=== PATIENT | female | born 1950 | race Two or more races ===

== ENCOUNTER 2018-03-17 06:34 | Inpatient (IN) | payer MEDICARE ==
[2018-03-16 09:49] VITALS: BMI 29.2
[2018-03-17] MEDS ORDERED: Bacitracin Ointment 30 GM TUBE ONE (07:23)
[2018-03-17 07:31] LABS: BASO # 0.1 K/uL (0.0-0.2); BASO % 1.5 % (0.0-2.0); EOS # 0.4 K/uL (0.0-0.7); HEMOGLOBIN 11.8 g/dL (12.0-16.0); LYMPH # 2.8 K/uL (1.0-4.3); LYMPH % 36.8 % (20.0-40.0); MEAN CELL VOLUME 87.1 fl (81.0-99.0); MEAN CORPUSCULAR HEMOGLOBIN 28.6 pg (27.0-31.0); MEAN CORPUSCULAR HGB CONC 32.9 g/dL (33.0-37.0); MEAN PLATELET VOLUME 8.3 fl (7.2-11.7); MONO # 0.4 K/uL (0.0-0.8); MONO % 5.6 % (0.0-10.0); NEUT # 3.8 K/uL (1.8-7.0); NEUT % 50.1 % (50.0-75.0); NRBC % 0.1 % (0.0-0.0); RBC 4.12 Mil/uL (3.80-5.20); RED CELL DISTRIBUTION WIDTH 15.1 % (11.5-14.5); WHITE BLOOD COUNT 7.5 K/uL (4.8-10.8)
[2018-03-17 07:36] LABS: SQUAMOUS EPITHIAL 1 /hpf (0-5); URINE BILIRUBIN NEGATIVE (NEGATIVE); URINE BLOOD SMALL (NEGATIVE); URINE CLARITY CLEAR (Clear); URINE COLOR YELLOW (YELLOW); URINE GLUCOSE (UA) NEG (Normal); URINE LEUKOCYTE ESTERASE NEG Leu/uL (Negative); URINE PROTEIN NEGATIVE (NEGATIVE); URINE UROBILINOGEN 0.2-1.0 mg/dL (0.2-1.0)
[2018-03-17 07:41] LABS: PROTHROMBIN TIME 11.9 Seconds (9.8-13.1)
[2018-03-17 07:44] LABS: PARTIAL THROMBOPLASTIN TIME 34.9 Seconds (25.6-37.1)
--- NOTE | 2018-03-17 07:51 | CP.PCM.CON ---
History of Present Illness - History of Present Illness History of Present Illness: Orthopedic consultation Dr. Verduzco 68F complains of left knee pain found to have severe DJD failed conservative mgmt and elected for TKR. Denies right knee pain. Lives with son has one flight of stairs. Uses cane for ambulation. No recent illness. No history of bleeding/clotting disorder. Last aspiring 4 days ago as directed. NO history CAD/CVA/stents/seizure PMH: HTN, anemia PSH: cholecystectomy, BTL seasonal allergies Review of Systems - Review of Systems All systems: reviewed and no additional remarkable complaints except - Musculoskeletal Musculoskeletal: As Per HPI Past Patient History - Past Medical History & Family History Past Medical History?: Yes Past Family History: Reviewed and not pertinent - Past Social History Smoking Status: Never Smoked - CARDIAC Hx Cardiac Disorders: Yes Hx Hypertension: Yes - PULMONARY Hx Respiratory Disorders: Yes Hx Bronchitis: Yes (years ago) - NEUROLOGICAL Hx Neurological Disorder: No - HEENT Hx HEENT Problems: Yes Hx Cataracts: Yes - RENAL Hx Chronic Kidney Disease: No - ENDOCRINE/METABOLIC Hx Endocrine Disorders: No - HEMATOLOGICAL/ONCOLOGICAL Hx Blood Disorders: Yes Hx Anemia: Yes Hx Blood Transfusions: No - INTEGUMENTARY Hx Dermatological Problems: No - MUSCULOSKELETAL/RHEUMATOLOGICAL Hx Musculoskeletal Disorders: Yes Hx Arthritis: Yes (back,knees) - GASTROINTESTINAL Hx Gastrointestinal Disorders: No - GENITOURINARY/GYNECOLOGICAL Hx Genitourinary Disorders: No - PSYCHIATRIC Hx Emotional Abuse: No Hx Physical Abuse: No - SURGICAL HISTORY Hx Surgeries: Yes Hx Cholecystectomy: Yes Hx Tubal Ligation: Yes - ANESTHESIA Hx Anesthesia: Yes Hx Anesthesia Reactions: No Hx Malignant Hyperthermia: No Has any member of the family had a problem w/ anesthesia?: No Meds Allergies/Adverse Reactions: Allergies Allergy/AdvReac Type Severity Reaction Status Date / Time hay fever Allergy CONGESTION Uncoded 03/17/18 06:50 mucous Allergy CONGESTION Uncoded 03/17/18 06:50 Physical Exam - Constitutional Appears: Well, No Acute Distress - Extremities Exam Additional comments: small effusion, no erythema, +DP/PT pulses calves soft NT neg homans - Neurological Exam Neurological exam: Alert, Oriented x3 - Psychiatric Exam Psychiatric exam: Normal Affect, Normal Mood - Skin Skin Exam: Dry, Intact, Normal Color, Warm Results - Vital Signs Recent Vital Signs: Last Vital Signs Temp 98.4 F 03/17/18 07:26 Pulse 58 L 03/17/18 07:32 Resp 18 03/17/18 07:26 BP 171/82 H 03/17/18 07:26 Pulse Ox 96 03/17/18 07:26 - Labs Result Diagrams: 03/17/18 07:15 Labs: Laboratory Results - last 24 hr 03/17/18 03/17/18 03/17/18 07:15 07:15 07:15 PT 11.9 INR 1.0 APTT 34.9 Urine Color Yellow Urine Clarity Clear Urine pH 6.0 Ur Specific [place] 1.018 Urine Protein Negative Urine Glucose (UA) Neg Urine Ketones Negative Urine Blood Small Urine Nitrate Negative Urine Bilirubin Negative Urine Urobilinogen 0.2-1.0 Ur Leukocyte Esterase Neg Urine RBC (Auto) 3 Urine Microscopic WBC 1 Ur Squamous Epith Cells 1 Crossmatch See Detail BBK History Checked No verified bt Assessment & Plan (1) Degenerative joint disease of knee, left Assessment and Plan: NPO T&S for OR risks/vielka/alt of TKR explained by Dr. Verduzco, patient verbalizes understanding and consents to procedure u/a reviewed, normal Status: Acute (2) Hypertension Assessment and Plan: cont home meds Status: Chronic (3) Anemia Assessment and Plan: cont iron, patient says it is better since taking iron Status: Chronic
--- NOTE | 2018-03-17 08:11 | CP.PCM.HP ---
Addendum entered and electronically signed by Bernard Plaza MD 03/17/18 17:23: Patient seen. All clinical data reviewed. Medical clearance in the chart . Discussed with resident . Agree with assessment and plan. Will follow up patient post op. Original Note: History of Present Illness - History of Present Illness History of Present Illness: 68 yo F with history of hypertension, anemia presenting today for elective left total knee replacement by Dr. Verduzco. Pt has degenerative joint disease of L knee, currently walks with a cane; has pain both upon walking a prolonged period of time as well as pain upon first getting up in the morning. She has failed conservative therapy, which included therapeutic injections and NSAIDs. Today, she feels well and has no physical complaints or concerns. She has had no recent illness. She has not taken aspirin in the past 4 days, and her last meal was yesterday at 9 pm. ROS: denies chest pain, shortness of breath, dizziness, abdominal discomfort Pt has been cleared for surgery with moderate risk on 03/09/18 as per cardiology: Dr. Hari Lai PMD: Dr. Becerra in [place]. Past Med Hx: HTN, anemia Past Surg Hx: cholecystectomy 1 yr ago, BTL Family Hx: denies family history of HTN, DM, stroke, [place], other chronic conditio ns Social hx: never smoker, denies alcohol use, denies illicit drug use Medications: telmisartan 80mhg-hctz 12.5 mg, iron, multivitamin Allergies: hay fever, amarol? Present on Admission - Present on Admission Any Indicators Present on Admission: No Review of Systems - Review of Systems All systems: reviewed and no additional remarkable complaints except - Cardiovascular Cardiovascular: absent: Chest Pain, Edema - Respiratory Respiratory: absent: Cough, Dyspnea, Chest Congestion - Gastrointestinal Gastrointestinal: absent: Abdominal Pain - Musculoskeletal Musculoskeletal: Joint Swelling (L knee) Past Patient History - Past Medical History & Family History Past Medical History?: Yes Past Family History: Reviewed and not pertinent - Past Social History Smoking Status: Never Smoked Alcohol: None Drugs: Denies - CARDIAC Hx Cardiac Disorders: Yes Hx Hypertension: Yes - PULMONARY Hx Respiratory Disorders: Yes Hx Bronchitis: Yes (years ago) - NEUROLOGICAL Hx Neurological Disorder: No - HEENT Hx HEENT Problems: Yes Hx Cataracts: Yes - RENAL Hx Chronic Kidney Disease: No - ENDOCRINE/METABOLIC Hx Endocrine Disorders: No - HEMATOLOGICAL/ONCOLOGICAL Hx Blood Disorders: Yes Hx Anemia: Yes Hx Blood Transfusions: No - INTEGUMENTARY Hx Dermatological Problems: No - MUSCULOSKELETAL/RHEUMATOLOGICAL Hx Musculoskeletal Disorders: Yes Hx Arthritis: Yes (back,knees) - GASTROINTESTINAL Hx Gastrointestinal Disorders: No - GENITOURINARY/GYNECOLOGICAL Hx Genitourinary Disorders: No - PSYCHIATRIC Hx Emotional Abuse: No Hx Physical Abuse: No - SURGICAL HISTORY Hx Surgeries: Yes Hx Cholecystectomy: Yes Hx Tubal Ligation: Yes - ANESTHESIA Hx Anesthesia: Yes Hx Anesthesia Reactions: No Hx Malignant Hyperthermia: No Has any member of the family had a problem w/ anesthesia?: No Meds Allergies/Adverse Reactions: Allergies Allergy/AdvReac Type Severity Reaction Status Date / Time hay fever Allergy CONGESTION Uncoded 03/17/18 06:50 mucous Allergy CONGESTION Uncoded 03/17/18 06:50 Physical Exam - Constitutional Appears: Well, No Acute Distress - Head Exam Head Exam: NORMAL INSPECTION, NORMOCEPHALIC - Eye Exam Eye Exam: Normal appearance - Respiratory Exam Respiratory Exam: Clear to Auscultation Bilateral, NORMAL BREATHING PATTERN - Cardiovascular Exam Cardiovascular Exam: REGULAR RHYTHM - GI/Abdominal Exam GI & Abdominal Exam: Normal Bowel Sounds, Soft. absent: Tenderness - Extremities Exam Extremities exam: Positive for: joint swelling (L knee). Negative for: calf tenderness, pedal edema, tenderness - Back Exam Back exam: NORMAL INSPECTION - Neurological Exam Neurological exam: Alert, Oriented x3 - Psychiatric Exam Psychiatric exam: Normal Mood - Skin Skin Exam: Dry, Intact, Warm Results - Vital Signs Recent Vital Signs: Last Vital Signs Temp 98.4 F 03/17/18 07:26 Pulse 58 L 03/17/18 07:32 Resp 18 03/17/18 07:26 BP 171/82 H 03/17/18 07:26 Pulse Ox 96 03/17/18 07:26 - Labs Result Diagrams: 03/17/18 07:15 Labs: Laboratory Results - last 24 hr 03/17/18 03/17/18 03/17/18 07:15 07:15 07:15 WBC 7.5 RBC 4.12 Hgb 11.8 L Hct 35.8 MCV 87.1 MCH 28.6 MCHC 32.9 L RDW 15.1 H Plt Count 363 MPV 8.3 Neut % (Auto) 50.1 Lymph % (Auto) 36.8 [place] % (Auto) 5.6 Eos % (Auto) 6.0 H Baso % (Auto) 1.5 Neut # (Auto) 3.8 Lymph # (Auto) 2.8 [place] # (Auto) 0.4 Eos # (Auto) 0.4 Baso # (Auto) 0.1 PT 11.9 INR 1.0 APTT 34.9 Urine Color Urine Clarity Urine pH Ur Specific [place] Urine Protein Urine Glucose (UA) Urine Ketones Urine Blood Urine Nitrate Urine Bilirubin Urine Urobilinogen Ur Leukocyte Esterase Urine RBC (Auto) Urine Microscopic WBC Ur Squamous Epith Cells Crossmatch See Detail BBK History Checked No verified bt 03/17/18 07:15 WBC RBC Hgb Hct MCV MCH MCHC RDW Plt Count MPV Neut % (Auto) Lymph % (Auto) [place] % (Auto) Eos % (Auto) Baso % (Auto) Neut # (Auto) Lymph # (Auto) [place] # (Auto) Eos # (Auto) Baso # (Auto) PT INR APTT Urine Color Yellow Urine Clarity Clear Urine pH 6.0 Ur Specific [place] 1.018 Urine Protein Negative Urine Glucose (UA) Neg Urine Ketones Negative Urine Blood Small Urine Nitrate Negative Urine Bilirubin Negative Urine Urobilinogen 0.2-1.0 Ur Leukocyte Esterase Neg Urine RBC (Auto) 3 Urine Microscopic WBC 1 Ur Squamous Epith Cells 1 Crossmatch BBK History Checked Assessment & Plan - Assessment and Plan (Free Text) Assessment: 68 yo F with hypertension, hx anemia, and arthritis for left TKR today. Pt medically optimized for surgery. Plan: 1. Left TKR - Admit patient for elective TKR, will follow post-op - Pain management as per ortho team - Incentive spirometry after surgery 2. Hypertension - BP initially elevated on arrival; repeat BP normal at 138/76 mm Hg - Monitor BP after surgery; plan to resume home medications 3. Anemia - History of iron deficient anemia - Resume oral iron post-op 4. DVT prophylaxis - As per ortho team post-op
[2018-03-17] MEDS ORDERED: Bupivacaine 0.5% Inj(30mL) ONE (10:08)
[2018-03-17] MEDS ORDERED: Propofol 10 mg/ml Inj (20 ML) ONE (10:12)
[2018-03-17] MEDS ORDERED: Rocuronium 10 mg/ml (5 ml) ONE ×2 (10:12→12:25)
[2018-03-17] MEDS ORDERED: Succinylcholine 200 mg/10 ml Inj IV ONE (10:12)
[2018-03-17] MEDS ORDERED: EPINEPHrine 1 mg/ml (1:1000) Inj ONE (10:14)
[2018-03-17] MEDS ORDERED: Dexamethasone 4 mg/1 ml ONE (10:14)
[2018-03-17] MEDS ORDERED: Tranexamic Acid 1,000 MG in Sodium Chloride 0.9% 100 ML IVPB ONE (10:30)
[2018-03-17] MEDS ORDERED: Lactated Ringer's 1,000 ML IV ONE ×2 (11:00→16:19)
[2018-03-17] MEDS ORDERED: Midazolam 2 MG/2 ML VIAL ONE (11:14)
[2018-03-17] MEDS ORDERED: Neostigmine 1:1000 (1 mg/ml) Inj ONE (12:56)
--- NOTE | 2018-03-17 14:24 | PCM.SURG1 ---
Surgeon's Initial Post Op Note - Surgeon's Notes Surgeon: Luba [employer] Web Developer: 1st assist Baron Chapin/2nd assist GE Lorenz Type of Anesthesia: General Endo (GE Her/ 2nd assikst) Anesthesia Administered By: DR Gamino Pre-Operative Diagnosis: tricompartmental O/A L knee Operative Findings: tricompartmental O/A L knee. anterior and posterioor synovits. posterior capsular contracture/lateral patella contracture Post-Operative Diagnosis: as above Operation Performed: L TKR. posterior capsular relewase. lateral patella release. anterior and posterior synovecrtomy. computer navigation Specimen/Specimens Removed: cartilage/synvoium/bone Estimated Blood Loss: EBL {In ML}: 30 Blood Products Given: N/A Drains Used: No Drains Post-Op Condition: Fair Date of Surgery/Procedure: 03/17/18 Time of Surgery/Procedure: 12:15 (time in room/anaesthesia indcution time 11:15)
[2018-03-17] MEDS ORDERED: HYDROmorphone 0.5 mg/0.5 ml ISec IVP PRN (14:28)
--- NOTE | 2018-03-17 14:32 | PCM.ANESB3 ---
Femoral Nerve Block - Femoral Nerve Block Date of Procedure: 03/17/18 Anesthesiologist: Pilar Pre-Procedure Diagnosis: Left knee advanced Arthritis Post-Procedure Diagnosis: Same Procedure Performed: Femoral Nerve Block Left - Procedure Femoral Nerve Block: The procedure was explained to the patient that it is for the post-operative pain management. Consent was obtained after a thorough discussion with the patient regarding the benefits and possible complications of local anesthetic block of the femoral nerve at the inguinal crease area. The patient was brought to the operating room and standard monitors were applied. Time-out was held with the circulating nurse to confirm the correct surgery and the appropriate block. Under general anesthesia, patient was placed in supine position with fully extended lower extremities and the ____left____ groin exposed. The femoral artery was then carefully palpated. The ultrasound transducer was then applied to this area in the transverse plane and the femoral nerve was visualized lateral to the femoral artery and underneath the fascia iliaca. After thorough identification, the inguinal crease area was prepped with Chloraprep solution. At this point, a #22 gauge Stimuplex 2-inch needle was inserted immediately lateral to the femoral artery pulse at the inguinal crease and advanced perpendicularly. The needle was inserted to the ultrasound transducer in-plane towards the femoral nerve in a [id number] direction. Needle advancement was performed carefully under direct ultrasound visualization. Nerve stimulator was used and twitch of the quadriceps muscle was obtained at current of __0.4___MA. After negative aspiration, __2___cc of __0.5___% __bupivacaine with 1:200:000 epinephrine was injected and this was followed with ___18__ cc of _0.5 % __bupivacaine with 1:200:000 epinephrine . Under ultrasound guidance the local anesthetics were observed spreading below fascia iliaca and around the femoral nerve. The needle was removed intact. The patient tolerated the femoral nerve block well with stable vital signs and was prepared for subsequent surgery.
--- NOTE | 2018-03-17 14:34 | PCM.ANESB2 ---
Popliteal Nerve Block - Popliteal Nerve Block Date of Procedure: 03/17/18 Anesthesiologist: Pilar Pre-Procedure Diagnosis: Left knee advanced arthritis Post-Procedure Diagnosis: Same Procedure Performed: Popliteal Nerve Block Left - Procedure Popliteal Nerve Block: This procedure was explained to the patient that it is for post-operative pain management. Consent was obtained after a thorough discussion with the patient regarding the benefits and possible complications of local anesthetic block of the sciatic nerve at the popliteal level. The patient was brought to the o perating room and standard monitors are applied. Time-out was held with the circulating nurse to confirm the correct surgery and the appropriate block. Under general anesthesia, patient's operative leg was gently raised and supported and the groove in between the biceps femoris and vastus lateralis muscles was carefully palpated. The skin approximately 8cm above the popliteal crease was then marked. The ultrasound transducer was then applied to the posterior thigh approximately 8cm above the popliteal crease in the transverse plane and the sciatic nerve before its division was visualized lateral to the popliteal artery and in between the bicep femoris and semimembranosus/semitendinosus muscles. After identification, the lateral portion of the thigh was prepped with Chloraprep. At this point, a # 21 gauge Stimuplex insulated 4 inch needle was inserted into pre-marked area and advanced in a perpendicular direction. The needle was inserted above the ultrasound transducer in-plane towards the sciatic nerve in a [id number]-jl-werorz direction. Needle advancement was performed carefully under direct ultrasound visualization. Nerve stimulator was used and dorsiflexion of the _left____ foot was elicited at a current of __0.4___ MA. After repeated negative aspiration, __2___cc of __0.375___ % ___bupivacaine with 1:200:000 epinephrine was injected and this was flowed with __18____ cc of __0.375____% __bupivacaine with 1:200:000 epinephrine . Under ultrasound guidance the local anesthetics were observed surrounding sciatic nerve . The needle was removed intact. The patient tolerated the popliteal nerve block well with stable vital signs and was subsequently prepared for the surgery.
--- NOTE | 2018-03-17 15:18 | RAD ---
Date of service: 03/17/2018 PROCEDURE: Left Knee Radiographs. HISTORY: Pain. COMPARISON: None. FINDINGS: BONES: Bone alignment is normal. There is diffuse bone demineralization. There is no acute fracture or bone destruction. JOINTS: Status post total cemented knee arthroplasty. JOINT EFFUSION: None. OTHER FINDINGS: There are expected postoperative changes in the periarticular soft tissues. There are anterior skin billie. IMPRESSION: Status post total cemented knee arthroplasty, expected postoperative changes. No acute complications.
[2018-03-17] MEDS: Lactated Ringer's 1,000 ML IV SCH (17:43)
--- NOTE | 2018-03-17 18:18 | CP.PCM.PCO ---
Assessment/Plan - Assessment and Plan (Free Text) Assessment: S: Patient seen and examined at bedside 60mins after her surgery. NAD, AAOx3, POD0, S/p LTKR, denies any pain. Patient voided already, No PO intake yet, denies any n/v, chest pain, SOB or dizziness. Patient was c/o Right eye irritation and burning, no vision changes. O: VS reviewed, Afebrile PE: Both eye: no erythema, swelling, discharge, PERRL, intact vision A/P: 68 y/o F, POD#0, S/p LTKR - C/w pain management - Encourage PO intake - monitor VS, AM labs - PT - Incentive Spirometer - Eye Burning: Artificial/tear drops - continue Management as per Ortho --- Aixa Hinkle, PGY-II
[2018-03-17] MEDS: ceFAZolin 2 GM in Sodium Chloride 0.9% 100 ML IVPB SCH (21:00)
[2018-03-17] MEDS: Artificial Tears Opht Soln OU PRN (21:04)
[2018-03-17] MEDS: Sodium Chloride 0.9% 1,000 ML IV SCH (21:10)
--- NOTE | 2018-03-18 02:32 | OP ---
PROCEDURE DATE: 03/17/2018 PREOPERATIVE DIAGNOSES: 1. Tricompartmental osteoarthritis of the left knee. 2. Anterior and posterior synovitis. 3. Posterior capsular contracture. 4. Lateral patellar retinacular contracture. POSTOPERATIVE DIAGNOSES: 1. Tricompartmental osteoarthritis of the left knee. 2. Anterior and posterior synovitis. 3. Posterior capsular contracture. 4. Lateral patellar retinacular contracture. OPERATION PERFORMED: 1. Left total knee replacement arthroplasty. 2. Posterior capsular release. 3. Lateral patellar retinacular release. 4. Anterior and posterior synovectomy. 5. Computer navigation. SURGEON: Pb Verduzco MD HVAC REFRIGERATION TECHNICIAN: Baron Chapin PA-C [employer] COACH: Greer Her, certified registered nursing surgical first assistant. ANESTHESIA: General endotracheal anesthesia and regional anesthesia by Dr. Quezada. SPECIMENS REMOVED: Cartilage, synovium and bone. BLOOD LOSS: 30 mL. BLOOD PRODUCTS GIVEN: None. DRAINS: No drains. POSTOPERATIVE CONDITION: Stable. TIME OF SURGERY: 12:15, incision, time in the room 11:15. OPERATIVE INDICATION: Nita Everett is a 68-year-old woman, well known to my practice, who presented with severe pain and restricted range of motion of the left knee. The patient can no longer stand the discomfort, has been treated conservatively with intraarticular injection, activity modification and therapy. Pros, cons, risks and benefits of surgical approach were discussed at length with the patient. The possibility of mechanical failure, infection, thromboembolic disease, nerve injury, secondary or tertiary surgery was discussed. The patient can no longer stand the discomfort and wishes the knee replacement arthroplasty accomplished. Alternative procedures have been discussed. OPERATIVE PROCEDURE: After having obtained the informed consent in the above fashion, after having identified the side, site and procedure and critical pause/time-out, after the satisfactory induction of the anesthetic, the patient was identified as Nita Everett in the supine position with all bony prominences well padded. The left lower extremity was prepped and free draped in the usual fashion for lower extremity surgery. The tourniquet had been applied but was not yet inflated. After exsanguinating the limb using a 6-inch Esmarch bandage, the tourniquet, which had been applied, was inflated to 350 mmHg. A 6-inch straight midline approach was made to the knee. The skin incision was carried down through the skin and subcutaneous tissue. A medial arthrotomy was accomplished. The patella was everted. The knee was flexed. Dissection was carried around posteromedially to the direct head of the semimembranosus tendon. Anterior and posterior cruciate ligaments were excised. Medial and lateral meniscectomies were accomplished. This having been accomplished, the tibia was dislocated anteriorly and the initial osteotomy of the arthroplasty was accomplished on the tibial side. Computer navigation commenced. The anterior tibial strut was affixed anteriorly, superiorly and medially, and it was held with pins and the belt. The accelerometer was placed as was the sensor and the position was noted. At this point in time, computer navigation commenced. The offset, the distance between the posterior insertion of the anterior cruciate ligament and was identified and marked. At this point in time, the medial malleolus was registered, the lateral malleolus was registered. The tibial cut was set to 0 degrees varus-valgus and 3 degrees posterior slope. This having been accomplished, the tibial osteotomy was accomplished 10 mm below the more prominent side. Tibial osteotomy was accomplished. The proximal tibia was prepared with guidance to rotation of the lateral aspect of the tibial condyle, mid malleolar axis, medial third of the tibial tuberosity. This having been accomplished, the wound was thoroughly irrigated. Attention was turned to the femur. Notch osteophytes and border osteophytes were debrided, and pin was placed in the superior aspect of the intercondylar notch. The distal cutting guide was affixed and the sensor and computer navigation accomplished. The sensor was applied as was the accelerometer. The metric above the anterior and posterior sizing was accomplished and registered. Computer navigation commenced. The hip center was found and the distal cut was set to 0 degrees varus-valgus and actually 0.5 degrees of flexion of the femoral component. This having been accomplished, the distal cut was set at 10 mm. The distal cut was accomplished, sizing this for a 3 mm femoral component. The distal femoral cutting block was placed across the epicondylar axis. Anterior and posterior femoral osteotomies were accomplished as well as chamfer cuts. There was found to be evidence of posterior capsular contracture. The posterior capsule was carefully released. The lateral patellar retinaculum was released. The femoral component was fixed and the tibial component was fixed and the 16 mm tibial poly was employed. Flexion/extension balance was found to be excellent. Attention was turned to the patella. Freehand osteotomy was accomplished. The patella was sized and reamed for a 34 mm patella. Flexion/extension balance, patella balance were excellent. The femur, tibia and patella were prepared. The #3 cemented femoral component was applied, the #3 cemented tibial tray, 16 mm polyethylene and the 34 mm patella was cemented as well. Again, flexion/extension balance was excellent, patella balance was excellent. Tourniquet was deflated. Hemostasis was controlled. The medial arthrotomy was closed with #2 FiberWire, followed by #1 Vicryl reinforcing the medial arthrotomy, followed by 0 Vicryl, 2-0 Vicryl and billie for the skin. The tourniquet had been deflated . Hemostasis was controlled. Blood loss was approximately 30 mL. Postoperative x-rays revealed acceptable position of the construct. Pb Verduzco MD
[2018-03-18] MEDS: Lactated Ringer's 1,000 ML IV SCH ×2 (03:05→16:00)
[2018-03-18] MEDS: Sodium Chloride 0.9% 1,000 ML IV SCH (03:13)
[2018-03-18] MEDS: ceFAZolin 2 GM in Sodium Chloride 0.9% 100 ML IVPB SCH (04:00)
[2018-03-18 06:34] LABS: HEMOGLOBIN 9.7 g/dL (12.0-16.0); MEAN CELL VOLUME 87.2 fl (81.0-99.0); MEAN CORPUSCULAR HGB CONC 33.3 g/dL (33.0-37.0); RBC 3.34 Mil/uL (3.80-5.20); WHITE BLOOD COUNT 9.5 K/uL (4.8-10.8)
[2018-03-18 06:48] LABS: BLOOD UREA NITROGEN 15 mg/dl (7-17); CALCIUM 8.6 mg/dL (8.4-10.2); GFR NON-AFRICAN AMERICAN > 60
[2018-03-18] MEDS: Artificial Tears Opht Soln OU PRN ×2 (08:25→16:02)
[2018-03-18 08:26] VITALS: BP 128/78; RESP 20
[2018-03-18] MEDS ORDERED: Multivitamin With Minerals Tab PO SCH (09:00)
[2018-03-18] MEDS ORDERED: [UNRECOGNIZED DRUG - OTHER] PO SCH (09:00)
--- NOTE | 2018-03-18 10:07 | CP.PCM.PN ---
<Susan Mireles - Last Filed: 03/18/18 12:48> Subjective - Date & Time of Evaluation Date of Evaluation: 03/18/18 Time of Evaluation: 09:50 - Subjective Subjective: Pt seen and evaluated this morning at bedside; POD 1 after left total knee replacement. Reports feeling good, worked with PT this am. Denies swelling, tingling, numbness. Objective - Vital Signs/Intake and Output Vital Signs (last 24 hours): Temp Pulse Resp BP Pulse Ox 98.2 F 76 20 128/78 98 03/18/18 08:25 03/18/18 09:33 03/18/18 08:25 03/18/18 08:27 03/18/18 09:33 - Medications Medications: Current Medications Acetaminophen (Tylenol 325mg Tab) 650 mg PO Q6 [facility] Last Admin: 03/18/18 09:44 Dose: 650 mg Artificial Tears (Artificial Tears) 2 drop OU Q4 PRN PRN Reason: Dry eyes Last Admin: 03/18/18 08:25 Dose: 2 drop Aspirin (Ecotrin) 81 mg PO BID [facility] Last Admin: 03/18/18 08:26 Dose: 81 mg Docusate Sodium (Colace) 100 mg PO BID [facility] Last Admin: 03/18/18 08:28 Dose: 100 mg Ferrous Sulfate (Feosol) 325 mg PO DAILY [facility] Last Admin: 03/18/18 08:25 Dose: 325 mg Hydrochlorothiazide (Microzide) 12.5 mg PO DAILY [facility] Last Admin: 03/18/18 08:28 Dose: 12.5 mg Hydromorphone HCl (Dilaudid) 0.5 mg IVP Q4 PRN PRN Reason: Pain, severe (8-10) Last Admin: 03/18/18 03:08 Dose: 0.5 mg Lactated Ringer's (Lactated Ringer's) 1,000 mls @ 100 mls/hr IV .Q10H [facility] Last Admin: 03/18/18 03:05 Dose: Not Given Sodium Chloride (Sodium Chloride 0.9%) 1,000 mls @ 80 mls/hr IV .[id number] [facility] Stop: 03/18/18 15:44 Last Admin: 03/18/18 03:13 Dose: Not Given Losartan Potassium (Cozaar) 100 mg PO DAILY [facility] Last Admin: 03/18/18 08:27 Dose: 100 mg Multivitamins/Minerals (Therapeutic-M Tab) 1 tab PO DAILY [facility] Last Admin: 03/18/18 08:25 Dose: 1 tab Ondansetron HCl (Zofran Inj) 4 mg IVP Q6 PRN PRN Reason: Nausea/Vomiting - Labs Labs: 03/18/18 05:25 03/18/18 05:25 PT 11.9 Seconds (9.8-13.1) 03/17/18 07:15 INR 1.0 03/17/18 07:15 APTT 34.9 Seconds (25.6-37.1) 03/17/18 07:15 - Constitutional Appears: No Acute Distress - Eye Exam Eye Exam: Normal appearance - Respiratory Exam Respiratory Exam: Clear to Ausculation Bilateral, NORMAL BREATHING PATTERN - Cardiovascular Exam Cardiovascular Exam: REGULAR RHYTHM, +S1, +S2 - GI/Abdominal Exam GI & Abdominal Exam: Soft, Normal Bowel Sounds - Extremities Exam Extremities Exam: absent: Calf Tenderness Additional comments: Left lower ext in dressing/brace; able to move toes, sensation intact. RLE no swelling, able to move freely - Neurological Exam Neurological Exam: Alert, Oriented x3 - Psychiatric Exam Psychiatric exam: Normal Affect - Skin Skin Exam: Dry, Intact, Normal Color Assessment and Plan - Assessment and Plan (Free Text) Assessment: 68 yo F with hypertension, hx anemia, and arthritis; POD 1 after left total knee replacement. Using incentive spirometer, doing well. Plan: 1. S/p Left TKR - POD 1 after elective TKR - Pain management as per ortho team; pain well controlled - Encourage incentive spirometry - Physical therapy/ Occupational Therapy 2. Hypertension - Well controlled - Hold diuretic; continue ARB 3. Anemia - History of iron deficient anemia - Resume oral iron post-op - Hgb 9.7; diuretic held to avoid volume depletion 4. Diet - Heart Healthy diet 5. DVT prophylaxis - As per ortho team post-op <Tamie Butts - Last Filed: 03/18/18 15:54> Objective - Vital Signs/Intake and Output Vital Signs (last 24 hours): Temp Pulse Resp BP Pulse Ox 98.2 F 76 20 128/78 98 03/18/18 08:25 03/18/18 09:33 03/18/18 08:25 03/18/18 08:27 03/18/18 09:33 - Medications Medications: Current Medications Acetaminophen (Tylenol 325mg Tab) 650 mg PO Q6 [facility] Last Admin: 03/18/18 14:58 Dose: 650 mg Artificial Tears (Artificial Tears) 2 drop OU Q4 PRN PRN Reason: Dry eyes Last Admin: 03/18/18 08:25 Dose: 2 drop Aspirin (Ecotrin) 81 mg PO BID [facility] Last Admin: 03/18/18 08:26 Dose: 81 mg Docusate Sodium (Colace) 100 mg PO BID [facility] Last Admin: 03/18/18 08:28 Dose: 100 mg Ferrous Sulfate (Feosol) 325 mg PO DAILY [facility] Last Admin: 03/18/18 08:25 Dose: 325 mg Hydrochlorothiazide (Microzide) 12.5 mg PO DAILY [facility] Last Admin: 03/18/18 08:28 Dose: 12.5 mg Hydromorphone HCl (Dilaudid) 0.5 mg IVP Q4 PRN PRN Reason: Pain, severe (8-10) Last Admin: 03/18/18 03:08 Dose: 0.5 mg Lactated Ringer's (Lactated Ringer's) 1,000 mls @ 100 mls/hr IV .Q10H [facility] Last Admin: 03/18/18 03:05 Dose: Not Given Losartan Potassium (Cozaar) 100 mg PO DAILY [facility] Last Admin: 03/18/18 08:27 Dose: 100 mg Multivitamins/Minerals (Therapeutic-M Tab) 1 tab PO DAILY [facility] Last Admin: 03/18/18 08:25 Dose: 1 tab Ondansetron HCl (Zofran Inj) 4 mg IVP Q6 PRN PRN Reason: Nausea/Vomiting - Labs Labs: 03/18/18 05:25 03/18/18 05:25 PT 11.9 Seconds (9.8-13.1) 03/17/18 07:15 INR 1.0 03/17/18 07:15 APTT 34.9 Seconds (25.6-37.1) 03/17/18 07:15 Attending/Attestation - Attestation I have personally seen and examined this patient.: Yes I have fully participated in the care of the patient.: Yes I have reviewed all pertinent clinical information, including history, physical exam and plan: Yes
--- NOTE | 2018-03-18 11:48 | CP.PCM.PN ---
Subjective - Date & Time of Evaluation Date of Evaluation: 03/18/18 Time of Evaluation: 11:45 - Subjective Subjective: Patient states pain is well controlled. Denies CP/SOB/dizziness/numbess/tingling. Objective - Vital Signs/Intake and Output Vital Signs (last 24 hours): Temp Pulse Resp BP Pulse Ox 98.2 F 76 20 128/78 98 03/18/18 08:25 03/18/18 09:33 03/18/18 08:25 03/18/18 08:27 03/18/18 09:33 - Medications Medications: Current Medications Acetaminophen (Tylenol 325mg Tab) 650 mg PO Q6 [facility] Last Admin: 03/18/18 09:44 Dose: 650 mg Artificial Tears (Artificial Tears) 2 drop OU Q4 PRN PRN Reason: Dry eyes Last Admin: 03/18/18 08:25 Dose: 2 drop Aspirin (Ecotrin) 81 mg PO BID [facility] Last Admin: 03/18/18 08:26 Dose: 81 mg Docusate Sodium (Colace) 100 mg PO BID [facility] Last Admin: 03/18/18 08:28 Dose: 100 mg Ferrous Sulfate (Feosol) 325 mg PO DAILY [facility] Last Admin: 03/18/18 08:25 Dose: 325 mg Hydrochlorothiazide (Microzide) 12.5 mg PO DAILY [facility] Last Admin: 03/18/18 08:28 Dose: 12.5 mg Hydromorphone HCl (Dilaudid) 0.5 mg IVP Q4 PRN PRN Reason: Pain, severe (8-10) Last Admin: 03/18/18 03:08 Dose: 0.5 mg Lactated Ringer's (Lactated Ringer's) 1,000 mls @ 100 mls/hr IV .Q10H [facility] Last Admin: 03/18/18 03:05 Dose: Not Given Sodium Chloride (Sodium Chloride 0.9%) 1,000 mls @ 80 mls/hr IV .[id number] [facility] Stop: 03/18/18 15:44 Last Admin: 03/18/18 03:13 Dose: Not Given Losartan Potassium (Cozaar) 100 mg PO DAILY [facility] Last Admin: 03/18/18 08:27 Dose: 100 mg Multivitamins/Minerals (Therapeutic-M Tab) 1 tab PO DAILY [facility] Last Admin: 03/18/18 08:25 Dose: 1 tab Ondansetron HCl (Zofran Inj) 4 mg IVP Q6 PRN PRN Reason: Nausea/Vomiting - Labs Labs: 03/18/18 05:25 03/18/18 05:25 PT 11.9 Seconds (9.8-13.1) 03/17/18 07:15 INR 1.0 03/17/18 07:15 APTT 34.9 Seconds (25.6-37.1) 03/17/18 07:15 - Extremities Exam Additional comments: +ROM ankle/toes, sensation intact +DP/PT pulses calves soft NT neg homans dressi ng intact, knee immob intact Assessment and Plan (1) Degenerative joint disease of knee, left Assessment & Plan: POD#1 s/p left TKR PT note appreciated, unable to tolerate stairs recommends [facility] orthopedically stable for transfer Patient for dressing change to remove aquacel dressing if to be discharged over weekend and sterile dry dressing applied VTE proph with aspirin 81 mg PO BID per Dr. Verduzco cont PT/OT encourage OOB d/w Dr. Verduzco, agrees with above Status: Acute (2) Hypertension Status: Chronic (3) Anemia Status: Chronic
--- NOTE | 2018-03-18 14:27 | CP.PCM.DIS ---
<AlineNataa - Last Filed: 03/18/18 14:24> Provider - Provider Date of Admission: 03/17/18 14:38 Attending physician: Bernard Plaza MD Primary care physician: Dr. Becerra in [place] Consults: Orthopedic Surgery - Dr. Verduzco Time Spent in preparation of Discharge (in minutes): 30 Diagnosis - Discharge Diagnosis (1) Status post total left knee replacement Status: Acute (2) Degenerative joint disease of knee, left Status: Chronic Hospital Course - Lab Results Lab Results: Micro Results 03/17/18 07:15 Urine Urine Culture - Final No Growth (<1,000 CFU/ML) Most Recent Lab Values WBC 9.5 K/uL (4.8-10.8) 03/18/18 05:25 RBC 3.34 Mil/uL (3.80-5.20) L 03/18/18 05:25 Hgb 9.7 g/dL (12.0-16.0) L D 03/18/18 05:25 Hct 29.2 % (34.0-47.0) L 03/18/18 05:25 MCV 87.2 fl (81.0-99.0) 03/18/18 05:25 MCH 29.0 pg (27.0-31.0) 03/18/18 05:25 MCHC 33.3 g/dL (33.0-37.0) 03/18/18 05:25 RDW 15.0 % (11.5-14.5) H 03/18/18 05:25 Plt Count 306 K/uL (130-400) 03/18/18 05:25 MPV 8.3 fl (7.2-11.7) 03/17/18 07:15 Neut % (Auto) 50.1 % (50.0-75.0) 03/17/18 07:15 Lymph % (Auto) 36.8 % (20.0-40.0) 03/17/18 07:15 Hood % (Auto) 5.6 % (0.0-10.0) 03/17/18 07:15 Eos % (Auto) 6.0 % (0.0-4.0) H 03/17/18 07:15 Baso % (Auto) 1.5 % (0.0-2.0) 03/17/18 07:15 Neut # (Auto) 3.8 K/uL (1.8-7.0) 03/17/18 07:15 Lymph # (Auto) 2.8 K/uL (1.0-4.3) 03/17/18 07:15 Hood # (Auto) 0.4 K/uL (0.0-0.8) 03/17/18 07:15 Eos # (Auto) 0.4 K/uL (0.0-0.7) 03/17/18 07:15 Baso # (Auto) 0.1 K/uL (0.0-0.2) 03/17/18 07:15 PT 11.9 Seconds (9.8-13.1) 03/17/18 07:15 INR 1.0 03/17/18 07:15 APTT 34.9 Seconds (25.6-37.1) 03/17/18 07:15 Sodium 141 mmol/l (132-148) 03/18/18 05:25 Potassium 3.6 MMOL/L (3.6-5.0) 03/18/18 05:25 Chloride 103 mmol/L (98-107) 03/18/18 05:25 Carbon Dioxide 27 mmol/L (22-30) 03/18/18 05:25 Anion Gap 15 (10-20) 03/18/18 05:25 BUN 15 mg/dl (7-17) 03/18/18 05:25 Creatinine 0.6 mg/dl (0.7-1.2) L 03/18/18 05:25 Est GFR ( Amer) > 60 03/18/18 05:25 Est GFR (Non-Af Amer) > 60 03/18/18 05:25 Random Glucose 123 mg/dL (65-105) H 03/18/18 05:25 Hemoglobin A1c 5.5 % (4.2-6.5) 03/18/18 05:25 Calcium 8.6 mg/dL (8.4-10.2) 03/18/18 05:25 Urine Color Yellow (YELLOW) 03/17/18 07:15 Urine Clarity Clear (Clear) 03/17/18 07:15 Urine pH 6.0 (5.0-8.0) 11/01/18 07:15 Ur Specific [place] 1.018 (1.003-1.030) 03/17/18 07:15 Urine Protein Negative mg/dL (NEGATIVE) 03/17/18 07:15 Urine Glucose (UA) Neg mg/dL (Normal) 03/17/18 07:15 Urine Ketones Negative mg/dL (NEGATIVE) 03/17/18 07:15 Urine Blood Small (NEGATIVE) 03/17/18 07:15 Urine Nitrate Negative (NEGATIVE) 03/17/18 07:15 Urine Bilirubin Negative (NEGATIVE) 03/17/18 07:15 Urine Urobilinogen 0.2-1.0 mg/dL (0.2-1.0) 03/17/18 07:15 Ur Leukocyte Esterase Neg Tasia/uL (Negative) 03/17/18 07:15 Urine RBC (Auto) 3 /hpf (0-3) 03/17/18 07:15 Urine Microscopic WBC 1 /hpf (0-5) 03/17/18 07:15 Ur Squamous Epith Cells 1 /hpf (0-5) 03/17/18 07:15 Blood Type O POSITIVE 03/17/18 07:15 Blood Type Confirm O POSITIVE 03/17/18 07:36 Antibody Screen Negative 03/17/18 07:15 Crossmatch See Detail 03/17/18 07:15 BBK History Checked No verified bt 03/17/18 07:15 - Hospital Course Hospital Course: 68 yo F with history of hypertension, anemia was admitted for elective left total knee replacement by Dr. Verduzco. Pt has degenerative joint disease of L knee, walked with a cane; had pain both upon walking a prolonged period of time as well as pain upon first getting up in the morning. She had failed conservative therapy, which included therapeutic injections and NSAIDs. She was medically optimized and cleared for surgery by her electrical maintenance mechanic. She underwent total left knee replacement on 03/17/18, and tolerated the procedure well. Today she was seen by physical therapy, and subacute rehab was recommended. Pt was seen/examined by me this am, reported feeling good, reported working with PT, denied swelling, tingling, numbness in extremities. As per ortho team, pt is orthopedically stable for transfer; dressing change done and dry dressing applied. To be transferred to [facility] today. F/u with ortho and PMD. Discharge Exam - Head Exam Head Exam: NORMAL INSPECTION, NORMOCEPHALIC - Eye Exam Eye Exam: Normal appearance - Respiratory Exam Respiratory Exam: Clear to PA & Lateral, NORMAL BREATHING PATTERN - Cardiovascular Exam Cardiovascular Exam: REGULAR RHYTHM, +S1, +S2 - GI/Abdominal Exam GI & Abdominal Exam: Normal Bowel Sounds, Soft, Unremarkable - Extremities Exam Additional comments: No calf tenderness, no edema Left lower ext in dressing/brace; able to move toes, sensation intact. RLE able to move freely - Neurological Exam Neurological exam: Alert, Oriented x3 - Psychiatric Exam Psychiatric exam: Normal Affect, Normal Mood - Skin Skin Exam: Dry, Normal Color, Warm Discharge Plan - Follow Up Plan Condition: GOOD Disposition: REHAB FACILITY/REHAB UNIT Instructions: Total Knee Replacement (DC) Additional Instructions: Follow up with ortho next wk Change dressing Wednesday - d/c Aquacel and place dry dressing F/u with PMD after rehab. Referrals: Pb Verduzco III, MD [Staff Provider] - <Tamie Butts - Last Filed: 03/18/18 15:57> Provider - Provider Date of Admission: 03/17/18 14:38 Attending physician: Bernard Plaza MD Primary care physician: [facility] Hospital Course - Lab Results Lab Results: Micro Results 03/17/18 07:15 Urine Urine Culture - Final No Growth (<1,000 CFU/ML) Most Recent Lab Values WBC 9.5 K/uL (4.8-10.8) 03/18/18 05:25 RBC 3.34 Mil/uL (3.80-5.20) L 03/18/18 05:25 Hgb 9.7 g/dL (12.0-16.0) L D 03/18/18 05:25 Hct 29.2 % (34.0-47.0) L 03/18/18 05:25 MCV 87.2 fl (81.0-99.0) 03/18/18 05:25 MCH 29.0 pg (27.0-31.0) 03/18/18 05:25 MCHC 33.3 g/dL (33.0-37.0) 03/18/18 05:25 RDW 15.0 % (11.5-14.5) H 03/18/18 05:25 Plt Count 306 K/uL (130-400) 03/18/18 05:25 MPV 8.3 fl (7.2-11.7) 03/17/18 07:15 Neut % (Auto) 50.1 % (50.0-75.0) 03/17/18 07:15 Lymph % (Auto) 36.8 % (20.0-40.0) 03/17/18 07:15 Hood % (Auto) 5.6 % (0.0-10.0) 03/17/18 07:15 Eos % (Auto) 6.0 % (0.0-4.0) H 03/17/18 07:15 Baso % (Auto) 1.5 % (0.0-2.0) 03/17/18 07:15 Neut # (Auto) 3.8 K/uL (1.8-7.0) 03/17/18 07:15 Lymph # (Auto) 2.8 K/uL (1.0-4.3) 03/17/18 07:15 Hood # (Auto) 0.4 K/uL (0.0-0.8) 03/17/18 07:15 Eos # (Auto) 0.4 K/uL (0.0-0.7) 03/17/18 07:15 Baso # (Auto) 0.1 K/uL (0.0-0.2) 03/17/18 07:15 PT 11.9 Seconds (9.8-13.1) 03/17/18 07:15 INR 1.0 03/17/18 07:15 APTT 34.9 Seconds (25.6-37.1) 03/17/18 07:15 Sodium 141 mmol/l (132-148) 03/18/18 05:25 Potassium 3.6 MMOL/L (3.6-5.0) 03/18/18 05:25 Chloride 103 mmol/L (98-107) 03/18/18 05:25 Carbon Dioxide 27 mmol/L (22-30) 03/18/18 05:25 Anion Gap 15 (10-20) 03/18/18 05:25 BUN 15 mg/dl (7-17) 03/18/18 05:25 Creatinine 0.6 mg/dl (0.7-1.2) L 03/18/18 05:25 Est GFR ( Amer) > 60 03/18/18 05:25 Est GFR (Non-Af Amer) > 60 03/18/18 05:25 Random Glucose 123 mg/dL (65-105) H 03/18/18 05:25 Hemoglobin A1c 5.5 % (4.2-6.5) 03/18/18 05:25 Calcium 8.6 mg/dL (8.4-10.2) 03/18/18 05:25 Urine Color Yellow (YELLOW) 03/17/18 07:15 Urine Clarity Clear (Clear) 03/17/18 07:15 Urine pH 6.0 (5.0-8.0) 03/17/18 07:15 Ur Specific [place] 1.018 (1.003-1.030) 03/17/18 07:15 Urine Protein Negative mg/dL (NEGATIVE) 03/17/18 07:15 Urine Glucose (UA) Neg mg/dL (Normal) 03/17/18 07:15 Urine Ketones Negative mg/dL (NEGATIVE) 03/17/18 07:15 Urine Blood Small (NEGATIVE) 03/17/18 07:15 Urine Nitrate Negative (NEGATIVE) 03/17/18 07:15 Urine Bilirubin Negative (NEGATIVE) 03/17/18 07:15 Urine Urobilinogen 0.2-1.0 mg/dL (0.2-1.0) 03/17/18 07:15 Ur Leukocyte Esterase Neg Tasia/uL (Negative) 03/17/18 07:15 Urine RBC (Auto) 3 /hpf (0-3) 03/17/18 07:15 Urine Microscopic WBC 1 /hpf (0-5) 03/17/18 07:15 Ur Squamous Epith Cells 1 /hpf (0-5) 03/17/18 07:15 Blood Type O POSITIVE 03/17/18 07:15 Blood Type Confirm O POSITIVE 03/17/18 07:36 Antibody Screen Negative 03/17/18 07:15 Crossmatch See Detail 03/17/18 07:15 BBK History Checked No verified bt 03/17/18 07:15 Attending/Attestation - Attestation I have personally seen and examined this patient.: Yes I have fully participated in the care of the patient.: Yes I have reviewed all pertinent clinical information, including history, physical exam and plan: Yes
[2018-03-18] MEDS ORDERED: Oxycodone/Acetaminophen 5/325 mg Tab PO ONE (15:32)
[2018-03-18 16:39] VITALS: PULSE 91; TEMP 98.5; O2SAT 99
== END 2018-03-18 17:55 | DRG 470 ==
LOC: H.OPSURG 06:34 → H.MEDSURG1 14:38 → H.OPSURG 17:00 → H.MEDSURG1 03-18 07:37 → UNDODISIN 03-18 17:35
PROVIDERS: ADMIT Hospitalist; ATTEND Hospitalist
PROC: 8E0YXBZ Computer Assisted Procedure of Lower Extremity (ICD-10-PCS; 2018-03-17)
PROC: 0SRD0J9 Replacement of Left Knee Joint with Synthetic Substitute, Cemented, Open Approach (ICD-10-PCS; principal; 2018-03-17 07:45)
PROC: 3E0T3BZ Introduction of Anesthetic Agent into Peripheral Nerves and Plexi, Percutaneous Approach (ICD-10-PCS; 2018-03-17 07:45)
PROC: 3E0T33Z Introduction of Anti-inflammatory into Peripheral Nerves and Plexi, Percutaneous Approach (ICD-10-PCS; 2018-03-17 07:45)
DX: M17.12 Unilateral primary osteoarthritis, left knee (principal); M65.862 Other synovitis and tenosynovitis, left lower leg; D50.8 Other iron deficiency anemias; I10 Essential (primary) hypertension; H57.89 Other specified disorders of eye and adnexa; Z79.82 Long term (current) use of aspirin